=== PATIENT | female | born 1950 | race Caucasian/White ===

== ENCOUNTER → 2019-01-13 10:01 | Outpatient (CLI) | payer MEDICARE, OTHER, SELFPAY ==
[2019-01-17 15:16] LABS: ANA Screen, IFA Positive (Negative); ANA Titer 1:40 titer (<1:40)
== END ==
PROVIDERS: Visit Provider Physician Assistant
DX: R21 Rash and other nonspecific skin eruption (principal)
CPT/HCPCS: 36415; 86038

== ENCOUNTER 2019-04-28 13:58 | Emergency (ER) | payer MEDICARE, OTHER, SELFPAY ==
[2019-04-28] MEDS: PROPARACAINE 0.5% OPHTH SOL 1 DROPS EYE-BOTH (14:11)
[2019-04-28 14:12] VITALS: BP 145/72; PULSE 60; RESP 15; O2SAT 99; BMI 19.5
--- NOTE | 2019-04-28 14:20 | ED_ITS ---
HPI - Eye Problem General Chief complaint: Eye Problems Stated complaint: ZAP CHEMICAL IN LEFT EYE Time Seen by Provider: 04/28/19 14:11 Source: patient Mode of arrival: Ambulatory Limitations: no limitations History of Present Illness HPI Narrative: 68-year-old female who does wear corrective lenses and occasionally wears contact lenses however she does not currently have the mid. She has never had any eye surgeries on her left eye. Here for evaluation of injury sustained when she had some sap from a [employer] plan get into her left eye. She has had pain since then. Related Data Previous Rx's Medication Instructions Recorded hydrocodone-acetaminophen [[place]] 1 tab PO Q4-6H PRN #7 tab 04/28/19 moxifloxacin [Vigamox] 1 drop EYE-LEFT QID 7 Days #3 ml 04/28/19 polyvinyl alcohol-povidon(PF) 1 drop EYE-LEFT QID #30 each 04/28/19 [Refresh Classic (PF)] Allergies Allergy/AdvReac Type Severity Reaction Status Date / Time No Known Drug Allergies Allergy Verified 04/28/19 14:12 Review of Systems Constitutional Constitutional: Denies fever(s) Eyes Comments: Pain and irritation and blurry vision to the left eye. Right eye is unremarkable. ENT Ears, Nose, Mouth, and Throat: Denies ear discharge and Reports throat swelling Cardiovascular Cardiovascular: Denies dyspnea Respiratory Respiratory: Denies dyspnea Musculoskeletal Musculoskeletal: Denies myalgias and Denies arthralgias Integumentary/Breasts Skin/Breast: Denies lesions and Denies rash Neurologic Neurologic: Denies abnormal speech Hematologic/Lymphatic Hematologic/Lymphatic: Denies easy bleeding and Denies easy bruising Allergic/Immunologic Allergic/Immunologic: Reports throat swelling Patient History Medical History Patient denies medical problems (Acute) Social History marital status: lives independently: Yes Social History marital status: lives independently: Yes Exam Initial Vital Signs Initial Vital Signs: Vital Signs Pulse Rate 60 04/28/19 14:12 Respiratory Rate 15 04/28/19 14:12 Blood Pressure 145/72 H 04/28/19 14:12 Pulse Oximetry 99 04/28/19 14:12 Const General: cooperative Orientation: alert, awake and oriented x3 HENMT Head: normal to inspection and normocephalic Eyes Pupils: PERRL EOM: EOM intact bilaterally Other: Right eye unremarkable, left eye shows no corneal irritation with fluorescein. No uptake with fluorescein. No foreign bodies noted. Resp Effort & Inspection: normal respiratory effort Cardio Rate: regular rate Skin Lesions: no lesions Rashes: no rashes Psych Appearance: grossly normal and well kempt Course Orders Ordered: Discontinued Medications Hydrocodone Bitart/Acetaminophen ([place] 5/325) 1 tab PO NOW ONE Stop: 04/28/19 15:35 Last Admin: 04/28/19 15:40 Dose: 1 tab Documented by: PHILIP Cyclopentolate HCl (Cyclogyl) 1 drops EYE-LEFT NOW ONE Stop: 04/28/19 16:22 Last Admin: 04/28/19 16:33 Dose: 1 drops Documented by: BRAYAN Erythromycin (Erythromycin Ophth Oint) 1 applic EYE-LEFT NOW ONE Stop: 04/28/19 15:15 Last Admin: 04/28/19 15:40 Dose: 1 applic Documented by: PHILIP Ibuprofen (Advil) 800 mg PO NOW ONE Stop: 04/28/19 16:22 Last Admin: 04/28/19 16:33 Dose: 800 mg Documented by: BRAYAN Proparacaine HCl (Parcaine 0.5% Ophth Areli) 1 drops EYE-BOTH NOW ONE Stop: 04/28/19 14:02 Last Admin: 04/28/19 14:11 Dose: 1 drops Documented by: BREONNA Vital Signs Vital signs: Vital Signs - 8 hr 04/28/19 14:12 04/28/19 14:30 04/28/19 17:00 Pulse Rate 60 67 67 Respiratory Rate 15 16 18 Blood Pressure 145/72 H Blood Pressure [Left Arm] 125/60 127/51 L Pulse Oximetry 99 98 MDM - Eye Problem MDM Narrative Medical decision making narrative: Patient was year a gated with a Jerrod lens of 1 L of normal saline. Approximately 15 minutes later pH was tested the patient had a pH is 7. There is no uptake with the fluorescein. No signs of corneal abrasion. There is no foreign bodies noted. Visual acuity performed after the irrigation. Patient's symptoms were greatly improved with the topical numbing medication. I did discuss the case with on-call ophthalmology who recommended that we place the patient on Vigamox. He also stated that we could start the patient on Cyclophenadate to cause eye dilation to help symptom control. Patient did have quite a bit of pain after the eye irrigation and when the tetracaine wore off. She was given drops of the Cyclophenadate in the ER. She states that the drops burned and she was unsure if it helped any of her discomfort. She is also given oral pain medication. Did inform the patient that unfortunately this is a very uncomfortable injury. I did inform her that ophthalmology would like to evaluate her tomorrow morning at 0800 hours in the morning. She was given this information. She was also given a prescription for the Vigamox. Also prescription for pain medication. She was given return precautions and follow-up instructions. Both her and her was at bedside expressed understanding and agreement plan. Discharge Plan Departure Patient Disposition: Home Clinical Impression: Irritation of left eye Discharge Date/Time: 04/28/19 17:52 Instructions: DI for Chemical Eye Burn, DI for Eye Pain Activity Restrictions/Additional Instructions: The [place] [facility] would like to see you tomorrow morning 04/29/[address] Basilio is the provider who is expecting you. Like we discussed if you would like to use the eyedrops in the bottle with the red top you can put 2 drops in your left eye 3 times a day. Take all of the other medications as directed. Return to the emergency department sooner if you have new or worsening symptoms Prescriptions: New moxifloxacin [Vigamox] 0.5 % drops 1 drop EYE-LEFT QID 7 Days Qty: 3 RF: 0 Refresh Classic (PF) 1.4-0.6 % dropperette 1 drop EYE-LEFT QID Qty: 30 RF: 0 hydrocodone-acetaminophen [[place]] 5-325 mg tablet 1 tab PO Q4-6H PRN (Reason: pain) Qty: 7 RF: 0
[2019-04-28 14:30] VITALS: BP 125/60; PULSE 67; RESP 16
[2019-04-28] MEDS: ERYTHROMYCIN OPHTH 1 GM OINT 1 APPLIC EYE-LEFT (15:40)
[2019-04-28] MEDS: HYDROCODONE/ACET 5/325 TABLET 1 TAB PO (15:40)
[2019-04-28] MEDS: CYCLOPENTOLATE 1% 1 DROPS EYE-LEFT (16:33)
[2019-04-28] MEDS: IBUPROFEN 400 MG TABLET 800 MG PO (16:33)
[2019-04-28 17:00] VITALS: BP 127/51; PULSE 67; RESP 18; O2SAT 98
== END 2019-04-28 17:52 | disposition home or self-care (01) ==
PROVIDERS: Emergency Provider Emergency Medicine
DX: H57.89 Other specified disorders of eye and adnexa (principal)
CPT/HCPCS: 99283